=== PATIENT | female | born 1945 | race Caucasian/White ===

== ENCOUNTER 2018-11-27 14:02 | Emergency (ER) | payer OTHER ==
[~2018-11-27] VITALS: Ht 160 cm; Wt 65.8 kg
== END 2018-11-27 18:21 | disposition home or self-care (01) ==
LOC: ER 14:02
DX: J09.X2 Influenza due to identified novel influenza A virus with other respiratory manifestations (principal)

== ENCOUNTER 2018-12-08 19:04 | Emergency (ER) | payer OTHER ==
[~2018-12-08] VITALS: Ht 160 cm; Wt 65.8 kg
[2018-12-08] MEDS ORDERED: DICLOFENAC SODI50 MG PO (23:34)
[2018-12-08] MEDS ORDERED: SKELAXIN800 MG PO (23:34)
[2018-12-08] MEDS ORDERED: TESSALON PERLE100 MG PO (23:34)
[2018-12-09] MEDS ORDERED: OSEL75CA (10:58)
== END 2018-12-09 00:09 | disposition home or self-care (01) ==
LOC: ER 19:04
DX: M94.0 Chondrocostal junction syndrome [Tietze] (principal)

== ENCOUNTER 2019-05-12 08:08 | Outpatient (CLI) | payer OTHER ==
[~2019-05-12 08:08] MED LIST: DICLOFENAC SODI50 MG PO; OSEL75CA; SKELAXIN800 MG PO; TESSALON PERLE100 MG PO
== END 2019-05-12 08:10 | disposition home or self-care (01) ==
LOC: TOM 08:08
DX: K56.690 Other partial intestinal obstruction (principal); K56.50 Intestinal adhesions [bands], unspecified as to partial versus complete obstruction; K56.609 Unspecified intestinal obstruction, unspecified as to partial versus complete obstruction

== ENCOUNTER 2021-08-18 12:02 | Emergency (ER) | payer OTHER ==
[~2021-08-18] VITALS: Ht 157.5 cm; Wt 68.0 kg
== END 2021-08-18 13:17 | disposition home or self-care (01) ==
LOC: ER 12:02
DX: S82.61XA Displaced fracture of lateral malleolus of right fibula, initial encounter for closed fracture (principal)

== ENCOUNTER 2023-01-28 08:58 | Emergency (ER) | payer OTHER ==
[~2023-01-28] VITALS: Ht 157.5 cm; Wt 63.5 kg
[2023-01-28] MEDS ORDERED: ALEVE220 MG (09:20)
== END 2023-01-28 12:53 | disposition home or self-care (01) ==
LOC: ER 08:58
DX: U07.1 COVID-19 (principal)